=== PATIENT | male | born 1970 | race Caucasian/White ===

== ENCOUNTER 2016-12-06 15:38 | Observation (INO) | payer MEDICAID, OTHER ==
[2016-12-06] MEDS ORDERED: Sodium Chloride 0.9% 1,000 ML IV ONE ×2 (15:55→17:43)
[2016-12-06] MEDS ORDERED: Iopamidol 755 Mg/ML 100 ML Bottle IV ONE (16:02)
[2016-12-06] MEDS ORDERED: Ondansetron 4 MG/2 ML SDV IVPUSH ONE (16:04)
[2016-12-06] MEDS ORDERED: Morphine 4 MG/ML Syringe IVPUSH ONE (16:04)
[2016-12-06] MEDS ORDERED: Ketorolac 30 MG/ML SDV IVPUSH ONE (16:57)
[2016-12-06] MEDS ORDERED: Ondansetron 4 MG/2 ML SDV IV PRN (17:59)
--- NOTE | 2016-12-06 17:59 | EDM.PDOC ---
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 Pt was complaining of severe lower and upper back and neck pain. No LOC. No N/V/d or any other acute medical issues. Onset: Today Onset Date: 12/06/16 Onset Time: 15:00 Duration: Minutes:, Intermittent Location: Reports: Neck, Chest, Abdomen, Back, Pelvis Quality: Reports: Burning, Dull, Pressure, Throbbing Severity: Moderate Improves with: Reports: Cold Therapy, Immobilization Worsens with: Reports: Movement Associated Symptoms: Reports: No Other Symptoms whole back Pain Score (Numeric/FACES): 10 - Related Data Allergies Allergy/AdvReac Type Severity Reaction Status Date / Time No Known Allergies Allergy Verified 12/06/16 15:51 Home Meds: Home Meds NK [No Known Home Meds] 12/06/16 [History] Past Medical History - Past Health History Medical/Surgical History: Denies Medical/Surgical History Psychiatric History: 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, Antisocial Behaviors, Anxiety, Panic Attack, Other (See Below) - Past Surgical History GI Surgical History: Reports: Appendectomy Other Musculoskeletal Surgeries/Procedures:: left knee with metal Social & Family History - Family History Family Medical History: Noncontributory - Tobacco Use Smoking Status *Q: Current Every Day Smoker Years of Tobacco use: 30 Packs/Tins Daily: 1 - Caffeine Use Caffeine Use: Reports: Coffee, Soda - Alcohol Use Days Per Week of Alcohol Use: 2 Number of Drinks Per Day: 6 Total Drinks Per Week: 12 - Recreational Drug Use Recreational Drug Use: No Drug Use in Last 12 Months: Yes Recreational Drug Type: Reports: Marijuana/Hashish, Methamphetamine, PCP (Romeo Dust) Recreational Drug Use Frequency: Binges - Living Situation & Occupation Living situation: Reports: Single, with Significant Other Occupation: Unemployed ED ROS GENERAL - Review of Systems Review Of Systems: See Below Constitutional: Reports: No Symptoms HEENT: Reports: No Symptoms Respiratory: Reports: No Symptoms Cardiovascular: Reports: No Symptoms Endocrine: Reports: No Symptoms GI/Abdominal: Reports: No Symptoms : Reports: No Symptoms Musculoskeletal: Reports: No Symptoms Skin: Reports: No Symptoms Neurological: Reports: No Symptoms Psychiatric: Reports: No Symptoms Hematologic/Lymphatic: Reports: No Symptoms Immunologic: Reports: No Symptoms ED EXAM,LOWER BACK PAIN/INJURY - Physical Exam Exam: See Below Exam Limited By: Physical Impairment General Appearance: Alert, WD/WN, Moderate Distress Eye Exam: Bilateral Eye: Normal Inspection Ears: Normal External Exam, Normal Canal, Normal TMs Nose: Normal Inspection, Normal Mucosa, No Blood Throat/Mouth: Normal Inspection, Normal Lips, Normal Teeth, Normal Oropharynx Head: Atraumatic, Normocephalic Neck: Tender Lateral Respiratory/Chest: No Respiratory Distress, Lungs Clear, Decreased Breath Sounds Cardiovascular: Normal Peripheral Pulses, Regular Rate, Rhythm GI/Abdominal: Normal Bowel Sounds (Male) Exam: Deferred Rectal (Males) Exam: Deferred Back Exam: Paraspinal Tenderness, Vertebral Tenderness Extremities: Normal Inspection Neurological: Alert, Normal Mood/Affect, Normal Dorsiflexion, CN II-XII Intact Psychiatric: Normal Affect, Normal Mood, Anxious Skin Exam: Warm, Dry, Intact Lymphatic: No Adenopathy Course - Vital Signs Text/Narrative:: 46 y.o.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 Pt was complaining of severe lower and upper back and neck pain. No LOC. No N/V/d or any other acute medical issues. PE: Tender mid lower back Imaging: CT head,neck, chest, abd. pelvis: Compression fx t 12 (1/4th of hayes) Impression:Compression fx t 12 (1/4th of hayes) Tx: Morphin, Toradol, Norflex, NS. Impression: Improved Plan: admit to [facility] for pain control. Last Recorded V/S: Last Vital Signs Temp 36.4 C 12/06/16 19:00 Pulse 72 12/06/16 19:00 Resp 18 12/06/16 19:00 BP 112/63 12/06/16 19:00 Pulse Ox 100 12/06/16 19:05 - Orders/Labs/Meds Orders: Active Orders 24 hr Category Date Time Status Cervical Spine wo Cont [CT] Stat Exams 12/06/16 15:58 Taken Chest Abdomen Pelvis w Cont [CT] Stat Exams 12/06/16 15:58 Taken Head wo Cont [CT] Stat Exams 12/06/16 15:58 Taken Medication Orders Morphine Sulfate (Morphine) 2 mg IVPUSH Q2H PRN PRN Reason: Pain (severe 7-10) Last Admin: 12/06/16 19:40 Dose: 2 mg Ondansetron HCl (Zofran) 4 mg IV Q6H PRN PRN Reason: Nausea/Vomiting Orphenadrine Citrate (Norflex) 100 mg PO BID DALTON Last Admin: 12/06/16 22:08 Dose: 100 mg Sodium Chloride (Saline Flush) 10 ml FLUSH ASDIRECTED PRN PRN Reason: Keep Vein Open Last Admin: 12/06/16 19:41 Dose: 10 ml Labs: Laboratory Tests 12/06/16 12/06/16 12/06/16 Range/Units 16:15 16:15 16:15 WBC 11.8 (4.5-12.0) X10-3/uL RBC 4.86 (4.30-5.75) x10(6)uL Hgb 15.4 (11.5-15.5) g/dL Hct 45.6 (30.0-51.3) % MCV 94.0 (80-96) fL MCH 31.7 (27.7-33.6) pg MCHC 33.8 (32.2-35.4) g/dL RDW 12.9 (11.5-15.5) % Plt Count 350 (125-369) X10(3)uL MPV 7.3 L (7.4-10.4) fL Neut % (Auto) 71.2 (46-82) % Lymph % (Auto) 20.0 (13-37) % Whitley % (Auto) 6.7 (4-12) % Eos % (Auto) 2 (1.0-5.0) % Baso % (Auto) 1 (0-2) % Neut # (Auto) 8.3 (1.6-8.3) # Lymph # (Auto) 2.4 (0.6-5.0) # Whitley # (Auto) 0.8 (0.0-1.3) # Eos # (Auto) 0.2 (0.0-0.8) # Baso # (Auto) 0.1 (0.0-0.2) # Sodium 136 (135-145) mmol/L Potassium 3.8 (3.5-5.3) mmol/L Chloride 101 (100-110) mmol/L Carbon Dioxide 27 (23-29) mmol/L BUN 15 (5-20) mg/dL Creatinine 1.1 (0.6-1.3) mg/dL Est Cr Clr Drug Dosing 102.42 mL/min Estimated GFR (MDRD) > 60 (>60) BUN/Creatinine Ratio 13.6 (9-20) Glucose 104 (80-116) mg/dL Calcium 9.4 (8.6-10.2) mg/dL Ethyl Alcohol < 0.01 (<0.01) % Meds: Medications Generic Name Dose Route Start Last Admin Trade Name Freq PRN Reason Stop Dose Admin Morphine Sulfate 2 mg 12/06/16 17:59 12/06/16 19:40 Morphine IVPUSH 2 mg Q2H PRN Administration Pain (severe 7-10) Ondansetron HCl 4 mg 12/06/16 17:59 Zofran IV Q6H PRN Nausea/Vomiting Orphenadrine Citrate 100 mg 12/06/16 22:00 12/06/16 22:08 Norflex PO 100 mg BID DALTON Administration Sodium Chloride 10 ml 12/06/16 17:59 12/06/16 19:41 Saline Flush FLUSH 10 ml ASDIRECTED PRN Administration Keep Vein Open Discontinued Medications Generic Name Dose Route Start Last Admin Trade Name Andre PRN Reason Stop Dose Admin Sodium Chloride 1,000 mls @ 999 mls/hr 12/06/16 15:55 12/06/16 16:17 Normal Saline IV 12/06/16 16:55 999 mls/hr .BOLUS ONE Administration Sodium Chloride 1,000 mls @ 999 mls/hr 12/06/16 17:43 12/06/16 18:08 Normal Saline IV 12/06/16 18:43 999 mls/hr .BOLUS ONE Administration Iopamidol 100 ml 12/06/16 16:02 12/06/16 16:40 Isovue-370 (76%) IV 12/06/16 16:03 100 ml . DIRECTED ONE Administration Ketorolac Tromethamine 30 mg 12/06/16 16:57 12/06/16 17:04 Toradol IVPUSH 12/06/16 16:58 30 mg ONETIME ONE Administration Morphine Sulfate 4 mg 12/06/16 16:04 12/06/16 16:18 Morphine IVPUSH 12/06/16 16:05 4 mg ONETIME ONE Administration Ondansetron HCl 4 mg 12/06/16 16:04 12/06/16 16:20 Zofran IVPUSH 12/06/16 16:05 4 mg ONETIME ONE Administration Orphenadrine Citrate 60 mg 12/06/16 17:23 12/06/16 17:27 Norflex IM 12/06/16 17:24 60 mg ONETIME STA Administration Oxycodone/Acetaminophen 1 tab 12/06/16 21:54 12/06/16 22:08 Percocet 325-5 Mg PO 12/06/16 21:55 1 tab ONETIME ONE Administration Departure - Departure Time of Disposition: 17:56 Disposition: Refer to Observation Condition: Fair Clinical Impression: Back pain of thoracolumbar region Thoracic spine fracture Qualifiers: Encounter type: initial encounter Thoracic vertebra fracture level: T12 Fracture type: closed - Discharge Information - My Orders Last 24 Hours: My Active Orders 12/06/16 15:58 Cervical Spine wo Cont [CT] Stat Chest Abdomen Pelvis w Cont [CT] Stat Head wo Cont [CT] Stat - Assessment/Plan Last 24 Hours: My Active Orders 12/06/16 15:58 Cervical Spine wo Cont [CT] Stat Chest Abdomen Pelvis w Cont [CT] Stat Head wo Cont [CT] Stat
[2016-12-06] MEDS: Morphine 2 MG/ML Syringe IVPUSH PRN (19:40)
[2016-12-06] MEDS: Sodium Chloride 0.9% 10 ML Syringe FLUSH PRN (19:41)
[2016-12-06] MEDS ORDERED: Acetaminophen/oxyCODONE 325-5 MG Tab PO ONE (21:54)
[2016-12-06] MEDS: Orphenadrine 100 MG Tab.ER PO SCH (22:08)
[2016-12-07] MEDS: Morphine 2 MG/ML Syringe IVPUSH PRN (02:55)
[2016-12-07] MEDS: Sodium Chloride 0.9% 10 ML Syringe FLUSH PRN ×3 (02:56→13:42)
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
[2016-12-07] MEDS: Orphenadrine 100 MG Tab.ER PO SCH ×2 (10:08→21:03)
[2016-12-07] MEDS: HYDROcodone/Ibuprofen 7.5-200 MG Tab PO SCH ×4 (10:08→21:03)
[2016-12-07] MEDS: HYDROmorphone 2 MG/ML SDV IVPUSH PRN ×2 (11:29→13:42)
[2016-12-08] MEDS: HYDROcodone/Ibuprofen 7.5-200 MG Tab PO SCH ×3 (02:21→09:32)
[2016-12-08 07:38] VITALS: BP 122/78
[2016-12-08] MEDS: Orphenadrine 100 MG Tab.ER PO SCH (09:32)
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
== END 2016-12-08 13:15 | disposition home or self-care (01) ==
LOC: FB.ED 15:38 → FB.MS 17:59
PROVIDERS: ADMIT Family Medicine; ATTEND Family Medicine
DX: S22.080A Wedge compression fracture of T11-T12 vertebra, initial encounter for closed fracture (principal); F17.210 Nicotine dependence, cigarettes, uncomplicated; V85.9XXA Unspecified occupant of special construction vehicle injured in nontraffic accident, initial encounter; Z90.49 Acquired absence of other specified parts of digestive tract; Z98.890 Other specified postprocedural states
CPT/HCPCS: 36415; 70450; 71260; 72125; 74177; 80048; 80305; 81001; 85025; 96361; 96372; 96374; 96375; 96376; 97166; 97530; 97535; 99284; A9270; G0378; G0480; J1170; J1885; J2270; J2360; J2405; J7040; J7050; Q9967

== ENCOUNTER 2018-12-27 10:52 | Emergency (ER) | payer MEDICAID, OTHER ==
[2018-12-27] MEDS ORDERED: Lidocaine 1% with EPINEPHrine 1:100,000 10 ML MDV INFILT ONE (10:53)
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
[2018-12-27] MEDS ORDERED: Diphtheria,Pertussis(Acell),Tetanus Vaccine 0.5 ML SDV IM ONE (16:51)
[2018-12-27 20:26] VITALS: BP 129/78; PULSE 66
== END 2018-12-27 11:57 | disposition home or self-care (01) ==
LOC: FB.ED 10:52
DX: S61.313A Laceration without foreign body of left middle finger with damage to nail, initial encounter (principal); F17.200 Nicotine dependence, unspecified, uncomplicated; W26.8XXA Contact with other sharp object(s), not elsewhere classified, initial encounter
CPT/HCPCS: 12001; 64450; 99282